=== PATIENT | male | born 1955 | race Two or more races ===

== ENCOUNTER 2024-03-31 08:00 | Outpatient (CLI) | payer OTHER ==
[~2024-03-31] VITALS: Ht 177.8 cm; Wt 88.0 kg
[2024-03-31 11:37] VITALS: BP 163/91
[2024-03-31] MEDS ORDERED: LEVOTHYROXINE25 MCG PO (11:40)
== END 2024-03-31 14:32 | disposition home or self-care (01) ==
LOC: EKG 08:00 → ADM 10:45 → EKG 14:32 → EDSTATUS 04-11 10:45 → CIR.AMB 04-11 10:45
PROVIDERS: ATTEND Surgery
DX: D37.4 Neoplasm of uncertain behavior of colon (principal); D12.8 Benign neoplasm of rectum

== ENCOUNTER 2024-07-25 05:36 | Day surgery (SDC) | payer OTHER ==
[2024-07-15 10:52] VITALS: BP 152/90
[~2024-07-25] VITALS: Ht 177.8 cm; Wt 88.5 kg
[~2024-07-25 05:36] MED LIST: LEVOTHYROXINE25 MCG PO
[2024-07-25] MEDS ORDERED: CEFTRIAXONE SODIUM 2,000 MG VIAL ONE (06:49)
[2024-07-25] MEDS ORDERED: METRONIDAZOLE/SODIUM CHLORIDE 500 MG/100 ML PIGGYBACK IV ONE ×2 (06:49→07:45)
[2024-07-25] MEDS ORDERED: BUPIVACAINE HCL/MPF 0.5% 30ML VIAL ONE (07:09)
[2024-07-25] MEDS ORDERED: POVIDONE-IODINE 118 ML BOTT TOP ONE ×2 (07:09→07:45)
[2024-07-25] MEDS ORDERED: HEMOSTATIC MATRIX 1 KIT KIT TOP ONE ×2 (07:09→07:45)
[2024-07-25] MEDS ORDERED: DIBUCAINE 30 GM TUBE ONE (07:09)
[2024-07-25] MEDS ORDERED: LIDOCAINE HCL 1%/EPINEPHRINE 20ML VIAL IJ ONE ×2 (07:10→07:30)
[2024-07-25] MEDS ORDERED: BUPIVACAINE HCL 30 ML VIAL IJ ONE (07:30)
[2024-07-25] MEDS ORDERED: CEFTRIAXONE SODIUM 2,000 MG VIAL IV ONE (07:30)
[2024-07-25] MEDS ORDERED: DIBUCAINE 30 GM TUBE RECTAL ONE (07:45)
[2024-07-25] MEDS ORDERED: PERCOCET 5-3251 EACH PO (08:47)
[2024-07-25] MEDS ORDERED: RECTICARE30 GM TOP (08:48)
[2024-07-25] MEDS ORDERED: TAMSULOSIN HCL 0.4 MG CAP PO ONE ×2 (14:08→14:15)
== END 2024-07-25 14:45 | disposition home or self-care (01) ==
LOC: CIR.AMB 05:36
PROVIDERS: ATTEND Surgery
DX: D12.8 Benign neoplasm of rectum (principal); Z91.018 Allergy to other foods